=== PATIENT | female | born 1950 | race Caucasian/White ===

== ENCOUNTER → 2021-12-03 07:08 | Outpatient (CLI) | payer MEDICARE, SELFPAY ==
[2021-12-04 20:28] LABS: Fecal Immunochemical Test Negative (Negative)
== END ==
PROVIDERS: PCP Nurse Practitioner; Referring Provider Nurse Practitioner; Visit Provider Nurse Practitioner
DX: Z12.11 Encounter for screening for malignant neoplasm of colon (principal)
CPT/HCPCS: 82274

== ENCOUNTER → 2021-12-21 15:27 | Outpatient (CLI) | payer MEDICARE, SELFPAY | PROVIDERS: PCP Nurse Practitioner; Visit Provider Nurse Practitioner | DX: N89.8 Other specified noninflammatory disorders of vagina (principal) | CPT/HCPCS: 87070; 87077; 87186; 87205 ==

== ENCOUNTER → 2022-01-04 10:45 | Outpatient (CLI) | payer MEDICARE, SELFPAY ==
--- NOTE | 2022-01-04 10:47 | DI.MG.S_ITS ---
BILATERAL DIGITAL SCREENING MAMMOGRAM 3D/2D WITH CAD: 01/04/2022 CLINICAL: Routine screening. Comparison is made to exams dated: 12/06/2020 mammogram and 03/29/2019 mammogram - outside location. Both breasts are heterogeneously dense, which may obscure small masses (category c / 51-75% glandular tissue). Current study was also evaluated with a Computer Aided Detection (CAD) system. No significant masses, calcifications, or other findings are seen in either breast. There has been no significant interval change. IMPRESSION: NEGATIVE There is no mammographic evidence of malignancy. A 1 year screening mammogram is recommended. Based on the Tyrer Cuzick model (a risk assessment model) the patient's lifetime risk is 5.4% and her 10 year risk is 3.4%. According to the ACR, ACS, and NCCN guidelines, an annual breast MRI exam along with mammogram is recommended if the patient's lifetime risk is 20% or greater. This exam was interpreted at Station ID: [id number]. NOTE: For mammograms, a report in lay terms will be sent to the patient. Approximately 15% of breast malignancies will not be visualized mammographically. In the management of a palpable breast mass, a negative mammogram must not discourage biopsy of a clinically suspicious lesion. Electronically Signed By: Los smyth/hali:01/04/2022 11:46:06 letter sent: Normal Exam ACR BI-RADS Category 1: Negative 3341F
== END ==
PROVIDERS: PCP Nurse Practitioner; Referring Provider Nurse Practitioner; Visit Provider Nurse Practitioner
DX: Z13.820 Encounter for screening for osteoporosis (principal); Z12.31 Encounter for screening mammogram for malignant neoplasm of breast; M81.0 Age-related osteoporosis without current pathological fracture; Z78.0 Asymptomatic menopausal state; Z90.710 Acquired absence of both cervix and uterus
CPT/HCPCS: 77063; 77067; 77080

== ENCOUNTER → 2022-04-08 07:25 | Outpatient (CLI) | payer MEDICARE, SELFPAY ==
[2022-04-08 08:10] LABS: Influenza A - CEPHEID Flu A NEGATIVE (NEGATIVE); Influenza B - CEPHEID Flu B NEGATIVE (NEGATIVE); Respiratory Syncytial Virus Negative (Negative)
[2022-04-08 08:12] LABS: COVID-19 CEPHEID 4-PLEX PCR Negative (Negative)
== END ==
PROVIDERS: PCP Nurse Practitioner; Visit Provider Registered Nurse
DX: R05.9 Cough, unspecified (principal)
CPT/HCPCS: 0241U

== ENCOUNTER → 2022-07-28 09:36 | Outpatient (CLI) | payer MEDICARE, SELFPAY ==
--- NOTE | 2022-07-28 09:38 | DI.RAD.S_ITS ---
PROCEDURE: XR CLAVICLE RT INDICATIONS: soft tissue mass on right proximal clavicle TECHNIQUE: 2 views of the clavicle were acquired. COMPARISON: None. FINDINGS: Bones: No displaced fracture. No dislocation. Soft tissues: No suspicious calcifications IMPRESSION: No acute radiographic abnormality. If there is high concern for further derangement, consider MRI evaluation. Dictated by: Curt Hopper M.D. on 07/28/2022 at 10:14 Approved by: Curt Hopper M.D. on 07/28/2022 at 10:15
== END ==
PROVIDERS: PCP Family Medicine; Referring Provider Family Medicine; Visit Provider Family Medicine
DX: M79.89 Other specified soft tissue disorders (principal)
CPT/HCPCS: 73000

== ENCOUNTER → 2022-07-30 09:49 | Outpatient (CLI) | payer MEDICARE, SELFPAY ==
--- NOTE | 2022-07-30 09:50 | DI.US.S_ITS ---
PROCEDURE: US SOFT TISSUE HEAD AND NECK INDICATIONS: SOFT TISSUE MASS ON RIGHT PROXIMAL CLAVICLE TECHNIQUE: Real-time scanning was performed of the neck region of interest, with image documentation. COMPARISON: None. FINDINGS: Multiple grayscale and color images of the lower neck were acquired over the patient directed area of palpable concern involving the right clavicular region. No suspicious mass. No abnormal fluid collection. No adenopathy. The left lower neck at a similar region was imaged for comparison. No sonographic abnormalities are identified in this region. IMPRESSION: No sonographic abnormalities identified over the palpable area of patient concern in the region of the right clavicle. Dictated by: Dustin Thomas M.D. on 07/30/2022 at 12:08 Approved by: Dustin Thomas M.D. on 07/30/2022 at 12:09
== END ==
PROVIDERS: PCP Family Medicine; Referring Provider Family Medicine; Visit Provider Family Medicine
DX: M79.89 Other specified soft tissue disorders (principal)
CPT/HCPCS: 76536

== ENCOUNTER → 2022-08-25 07:05 | Outpatient (CLI) | payer MEDICARE, SELFPAY ==
[2022-08-25 08:07] LABS: Hematocrit 42.1 % (36-46); Hemoglobin 14.2 g/dL (12.0-16.0); Mean Corpuscular HGB Conc 33.6 % (30-36); Mean Corpuscular Volume 92.4 fL (80-100); Platelet Count 215 X10^3/uL (150-400); Red Blood Cell Count 4.56 X10^6/uL (4.0-5.2); White Blood Cell Count 4.7 X10^3/uL (4.5-11.0)
[2022-08-25 08:25] LABS: BUN Creatinine Ratio 20.3 (6-22); Blood Urea Nitrogen 12 mg/dL (7-17); Calcium 9.4 mg/dL (8.4-10.2); Carbon Dioxide 31 mmol/L (22-32); Chloride 101 mmol/L (98-107); Cholesterol 245 mg/dL (140-199); Estimated Glomerular Filt Rate > 60 mL/min (>60); Glucose 95 mg/dL (80-110); HDL Cholesterol 78 mg/dL (40-60); HEMOLYSIS < 15 (0-50); LDL Cholesterol Calculated 144 mg/dL (<100); Potassium 4.1 mmol/L (3.4-5.1); Sodium 138 mmol/L (137-145); Triglycerides 113 mg/dL (35-150)
== END ==
PROVIDERS: PCP Family Medicine; Referring Provider Family Medicine; Visit Provider Family Medicine
DX: E78.5 Hyperlipidemia, unspecified (principal); R53.83 Other fatigue; M81.0 Age-related osteoporosis without current pathological fracture; Z87.410 Personal history of cervical dysplasia; M79.89 Other specified soft tissue disorders
CPT/HCPCS: 36415; 80048; 80061; 84443; 85027

== ENCOUNTER → 2023-01-18 14:26 | Outpatient (CLI) | payer MEDICARE, SELFPAY ==
--- NOTE | 2023-01-18 | DI.MG.S_ITS ---
BILATERAL DIGITAL SCREENING MAMMOGRAM 3D/2D WITH CAD: 01/18/2023 CLINICAL: Routine screening. Comparison is made to exam dated: 01/04/2022 mammogram - [facility]. Both breasts are heterogeneously dense, which may obscure small masses (category c / 51-75% glandular tissue). Current study was also evaluated with a Computer Aided Detection (CAD) system. No significant masses, calcifications, or other findings are seen in either breast. There has been no significant interval change. IMPRESSION: NEGATIVE There is no mammographic evidence of malignancy. A 1 year screening mammogram is recommended. Based on the Tyrer Cuzick model (a risk assessment model) the patient's lifetime risk is 5.1% and her 10 year risk is 3.5%. According to the ACR, ACS, and NCCN guidelines, an annual breast MRI exam along with mammogram is recommended if the patient's lifetime risk is 20% or greater. This exam was interpreted at Station ID: [id number]. NOTE: For mammograms, a report in lay terms will be sent to the patient. Approximately 15% of breast malignancies will not be visualized mammographically. In the management of a palpable breast mass, a negative mammogram must not discourage biopsy of a clinically suspicious lesion. Electronically Signed By: Kelsie lou/hali:01/18/2023 18:06:16 letter sent: Normal Exam ACR BI-RADS Category 1: Negative 3341F
== END ==
PROVIDERS: PCP Family Medicine; Referring Provider Family Medicine; Visit Provider Family Medicine
DX: Z12.31 Encounter for screening mammogram for malignant neoplasm of breast (principal)
CPT/HCPCS: 77063; 77067

== ENCOUNTER → 2023-07-12 08:13 | Outpatient (CLI) | payer OTHER, SELFPAY ==
[2023-07-12 08:58] LABS: Influenza A - CEPHEID Flu A NEGATIVE (NEGATIVE); Influenza B - CEPHEID Flu B NEGATIVE (NEGATIVE); Respiratory Syncytial Virus Negative (Negative)
[2023-07-12 08:59] LABS: COVID-19 CEPHEID 4-PLEX PCR Negative (Negative)
== END ==
PROVIDERS: PCP Family Medicine; Visit Provider Physician Assistant Surgical
DX: J02.9 Acute pharyngitis, unspecified (principal)
CPT/HCPCS: 0241U

== ENCOUNTER → 2024-01-23 10:58 | Outpatient (CLI) | payer MEDICARE, SELFPAY ==
--- NOTE | 2024-01-23 11:00 | DI.RAD.S_ITS ---
PROCEDURE: XR DEXA AXIAL SKELETON INDICATIONS: bone density screening COMPARISON: [facility], [facility], XR DEXA AXIAL SKELETON, 01/04/2022, 11:07. FINDINGS: Lumbar Spine: Bone mineral density 0.769 g/cm2, T score -2.5, unchanged. Left Hip: Bone mineral density 0.662 g/cm2, T score -2.3, previously -2.1. Left Femoral Neck: Bone mineral density 0.529 g/cm2, T score -2.9, previously -2.7. Right Hip: Bone mineral density 0.714 g/cm2, T score -1.9, previously -1.8. Right Femoral Neck: Bone mineral density 0.554 g/cm2, T score -2.7, previously -2.7. Fracture Risk Calculation (when applicable): Not reported due to osteoporosis diagnosis. (T score greater or equal to -1.0 to: NORMAL) (T score from -1.1 to -2.4: OSTEOPENIA) (T score less than or equal to -2.5: OSTEOPOROSIS) IMPRESSION: Osteoporosis. Similar bone mineral density. Follow-up guidelines as follows: Osteoporosis: Consider a repeat DEXA and Vertebral Fracture Assessment (VFA) exam in 2 years or sooner if medically necessary, to reassess this patient's status. Osteopenia: Consider a repeat DEXA in 2-3 years to reassess this patient's status, or if there is a new clinical indication. Normal: Consider a repeat DEXA in 5 years or sooner, or if there is a new clinical indication. All treatment decisions require clinical judgment and consideration of individual patient factors, including patient preferences, comorbidities, previous drug use, risk factors not captured in the FRAX model (e.g., frailty, falls, vitamin D deficiency, increased bone turnover, interval significant decline in bone density ) and possible under- or over-estimation of fracture risk by FRAX. In addition, the NOF Guide recommends that FDA-approved medical therapies be considered in postmenopausal women and men age >= 50 years with a: * Hip or vertebral (clinical or morphometric) fracture * T-score of <=-2.5 at the spine or hip * Ten-year fracture probability by FRAX of >= 3% for hip fracture or >=20% for major osteoporotic fracture. People with diagnosed cases of osteoporosis or at high risk for fracture should have regular bone mineral density tests. For patients eligible for Medicare, routine testing is allowed once every 2 years. The testing frequency can be increased to one year for patients who have rapidly progressing disease, those who are receiving or discontinuing medical therapy to restore bone mass, or have additional risk factors. Dictated by: Harley Woodward M.D. on 01/23/2024 at 15:14 Approved by: Harley Woodward M.D. on 01/23/2024 at 15:16
--- NOTE | 2024-01-23 11:00 | DI.MG.S_ITS ---
BILATERAL DIGITAL SCREENING MAMMOGRAM 3D/2D WITH CAD: 01/23/2024 CLINICAL: Routine screening. Comparison is made to exams dated: 01/18/2023 mammogram - [facility], 12/06/2020 mammogram - outside [facility], and 01/04/2022 mammogram - [facility]. The breasts are heterogeneously dense, which may obscure small masses (category c / 51-75% glandular tissue). Current study was also evaluated with a Computer Aided Detection (CAD) system. No significant masses, calcifications, or other findings are seen in either breast. There has been no significant interval change. IMPRESSION: NEGATIVE There is no mammographic evidence of malignancy. A 1 year screening mammogram is recommended. Based on the Tyrer Cuzick model (a risk assessment model) the patient's lifetime risk is 4.8% and her 10 year risk is 3.6%. According to the ACR, ACS, and NCCN guidelines, an annual breast MRI exam along with mammogram is recommended if the patient's lifetime risk is 20% or greater. This exam was interpreted at Station ID: [id number]. NOTE: For mammograms, a report in lay terms will be sent to the patient. Approximately 15% of breast malignancies will not be visualized mammographically. In the management of a palpable breast mass, a negative mammogram must not discourage biopsy of a clinically suspicious lesion. Electronically Signed By: Jelly Ponce M.D., Ph.D. scout/hali:01/24/2024 10:39:16 letter sent: Normal Exam ACR BI-RADS Category 1: Negative [id number]
== END ==
PROVIDERS: PCP Family Medicine; Referring Provider Family Medicine; Visit Provider Family Medicine
DX: Z12.31 Encounter for screening mammogram for malignant neoplasm of breast (principal); M81.0 Age-related osteoporosis without current pathological fracture; R92.333 Mammographic heterogeneous density, bilateral breasts
CPT/HCPCS: 77063; 77067; 77080

== ENCOUNTER → 2024-07-05 13:25 | Outpatient (CLI) | payer MEDICARE, SELFPAY ==
[2024-07-05 15:30] LABS: Influenza A - CEPHEID Flu A NEGATIVE (NEGATIVE); Influenza B - CEPHEID Flu B NEGATIVE (NEGATIVE); Respiratory Syncytial Virus Negative (Negative)
[2024-07-05 15:31] LABS: COVID-19 CEPHEID 4-PLEX PCR Negative (Negative)
== END ==
PROVIDERS: PCP Family Medicine; Visit Provider Physician Assistant
DX: J06.9 Acute upper respiratory infection, unspecified (principal); R50.9 Fever, unspecified
CPT/HCPCS: 0241U

== ENCOUNTER → 2024-07-24 14:46 | Outpatient (CLI) | payer MEDICARE, SELFPAY ==
[2024-07-24 15:21] LABS: Add Manual Diff / Slide Review NO; Basophils Absolute Auto 100 /uL (0-100); Basophils Percent Auto 1.3 % (0-2); Eosinophils Absolute Auto 100 /uL (0-450); Eosinophils Percent Auto 1.9 % (2-4); Hemoglobin 13.8 g/dL (12.0-16.0); Lymphocytes Absolute Auto 1300 /uL (1100-4500); Lymphocytes Percent Auto 24.4 % (25-40); Mean Corpuscular HGB Conc 33.7 % (30-36); Mean Corpuscular Hemoglobin 31.4 PG (26-34); Mean Corpuscular Volume 93.2 fL (80-100); Monocytes Absolute Auto 400 /uL (0-900); Monocytes Percent Auto 8.5 % (3-14); Neutrophils Absolute Auto 3400 /uL (1500-7000); Neutrophils Percent Auto 63.9 % (50-75); Platelet Count 225 X10^3/uL (150-400); Red Cell Distribution Width 14.2 % (11.6-14.8); White Blood Cell Count 5.3 X10^3/uL (4.5-11.0)
[2024-07-24 15:50] LABS: Alanine Aminotransferase 14 IU/L (<35); Albumin 4.6 g/dL (3.5-5.0); Albumin Globulin Ratio 1.7 (1.0-2.8); Alkaline Phosphatase 85 U/L (38-126); Aspartate Aminotransferase 27 IU/L (14-36); BUN Creatinine Ratio 28.1 (6-22); Bilirubin Total 0.5 mg/dL (0.2-1.3); Blood Urea Nitrogen 18 mg/dL (7-17); Calcium 9.7 mg/dL (8.4-10.2); Carbon Dioxide 26 mmol/L (22-32); Chloride 103 mmol/L (98-107); Estimated Glomerular Filt Rate > 60 mL/min (>60); Globulin 2.7 g/dL (1.7-4.1); Glucose 113 mg/dL (80-110); HEMOLYSIS 39 (0-50); Potassium 4.8 mmol/L (3.4-5.1); Sodium 139 mmol/L (137-145); Total Protein 7.3 g/dL (6.3-8.2)
== END ==
PROVIDERS: PCP Family Medicine; Referring Provider Physician Assistant; Visit Provider Physician Assistant
DX: M81.0 Age-related osteoporosis without current pathological fracture (principal)
CPT/HCPCS: 36415; 80053; 85025

== ENCOUNTER 2024-09-26 12:45 | Outpatient (RCR) | payer MEDICARE, SELFPAY ==
--- NOTE | 2024-09-26 14:07 | PT.OIE ---
Current Diagnoses Pain in right knee (09/26/24) Pain in left knee (09/26/24) Pain in left ankle and joints of left foot (09/26/24) Past Medical History (Last Updated 07/29/23 @ 11:28 by Angela Stevens DO) Abnormal Pap smear of cervix (~1989) Chicken pox History of cervical dysplasia Mass of soft tissue of chest Measles Mumps Osteoporosis (~2001) Past Surgical History (Last Updated 07/29/23 @ 11:28 by Angela Stevens DO) Anesthesia History of tonsillectomy (~1966) S/P partial hysterectomy (~1989) Visit Care Team Role Provider Type Angela Stevens DO Attending Provider Physician Family Provider Primary Care Provider Referring Provider Specialty: Medical Address: [address] [place] [address], [address], [place], [address] Email: [email or web address] Physical Therapy Initial Evaluation PT-OP-A Visit Information Start: 09/26/24 09:48 Freq: Status: Active Protocol: Document 09/26/24 13:47 KW (Rec: 09/26/24 14:06 KW Laptop) Out-Patient Physical Therapy Visit Information Visit Information Visit Type Initial Evaluation Visit Start Time 13:00 Visit Stop Time 13:45 Visit Number 1 Evaluation Information Evaluation Date 09/26/24 PT-OP-B Current Condition Start: 09/26/24 09:48 Freq: Status: Active Protocol: Document 09/26/24 13:47 KW (Rec: 09/26/24 14:06 KW Laptop) Current Condition History of Current Condition Onset Date chronic Current Complaints L > R knee pain History of Current Condition 74 yo female, active with hiking local trails (no trekking poles) comes to PT with c/o medial knee pain L > R with coming down stairs, trails and some aching with sitting. Prior Treatments and Tests none Treatment Goals Patient/Caregiver Goals hike without knee pain PT-OP-C Subjective Start: 09/26/24 09:48 Freq: Status: Active Protocol: Document 09/26/24 13:47 KW (Rec: 09/26/24 14:06 KW Laptop) Patient Questionnaires Lower Extremity Functional Scale LEFS Impairment 60 to 79% Impaired (Score 17- 31) OP-PT Pain Assessment Location Right knee Intensity 3 Scale Used Numeric (0 - 10) Description Aching Frequency Intermittent Pain Aggravating Factors Activity,Exercise Pain Alleviating Factors Cold,Heat L knee Intensity 3 Scale Used Numeric (0 - 10) Description Aching Frequency Intermittent Pain Aggravating Factors Activity,Exercise Pain Alleviating Factors Cold,Heat,Inactivity PT-OP-D Balance Start: 09/26/24 09:48 Freq: Status: Active Protocol: Document 09/26/24 13:47 KW (Rec: 09/26/24 14:06 KW Laptop) OP-PT Balance Assessment Standing Balance Static Standing Balance Ability Good Dynamic Standing Balance Ability Fair Standing Balance Comments tandem with head/eye turns is a challenge Romberg is negative Christensen Fall Scale Copyright Permission PT-OP-E Functional Tests Start: 09/26/24 09:48 Freq: Status: Active Protocol: Document 09/26/24 13:47 KW (Rec: 09/26/24 14:06 KW Laptop) Functional Tests Squat Test Score 15 Single Leg Squat Test Score unable PT-OP-F Manual Assessment Start: 09/26/24 09:48 Freq: Status: Active Protocol: Document 09/26/24 13:47 KW (Rec: 09/26/24 14:06 KW Laptop) Manual Assessments Joint Mobility Assessment Joint Mobility Assessment full knee ROM PT-OP-G Mobility & Gait Start: 09/26/24 09:48 Freq: Status: Active Protocol: Document 09/26/24 13:47 KW (Rec: 09/26/24 14:06 KW Laptop) Stair Climbing Evaluation Evaluation Level of Assist On Stairs Independent Devices Stair Climbing Assistive Devices None Technique/Endurance Stair Climbing Direction Ascend and Descend Stair Climbing Technique Step Over Step Comments Stair Climbing Comments poor eccentric control thru hip/knee antwan on L side with coming up and down stairs, cues for alignment of weight transfer over knees decreased control of knee tracking both directions until cued to slow down and be mindful PT-OP-J Posture/Palpation/Skin Start: 09/26/24 09:48 Freq: Status: Active Protocol: Document 09/26/24 13:47 KW (Rec: 09/26/24 14:06 KW Laptop) Posture Evaluation Comments Posture Comments B knee hyperextension increased pronation thru L medial arch PT-OP-K Range of Motion Start: 09/26/24 09:48 Freq: Status: Active Protocol: Document 09/26/24 13:47 KW (Rec: 09/26/24 14:06 KW Laptop) Hip Goniometric Range of Motion Hip left Hip ROM WFL Yes right Hip ROM WFL Yes PT-OP-M Strength Start: 09/26/24 09:48 Freq: Status: Active Protocol: Document 09/26/24 13:47 KW (Rec: 09/26/24 14:06 KW Laptop) Hip Strength Hip Manual Muscle Testing Right Extension (S1) 4- Good- Abduction 4- Good- Left Extension (S1) 4- Good- Abduction 4- Good- Knee Strength Knee Manual Muscle Testing Left Flexion (S2) 4 Good Extension (L3) 4 Good Right Flexion (S2) 4+ Good+ Extension (L3) 4+ Good+ PT-OP-Q Treatments Start: 09/26/24 09:48 Freq: Status: Active Protocol: Document 09/26/24 13:47 KW (Rec: 09/26/24 14:06 KW Laptop) Therapeutic Exercises Sidelying Exercises clamshell with band Side bilateral Equipment Used blue Reps/Minutes 10 Comments work up to 3 x 10 Standing Exercises lateral step downs Standing Exercise Name 10 Side bilateral Equipment Used step and phone book Reps/Minutes 10 Comments cues for sitting back thru hips gastroc stretch Standing Exercise Name gastroc soleus Side bilateral Equipment Used wedge Reps/Minutes 30 sec Therapeutic Activity Therapeutic Activity sit to stand with mirror Name sit to stand Reps/Minutes 10 Comments cues for nose over toes, tracking and alignment, press thru heels Gait Training Gait Activity stairs Comments full stair case simulating hiking trail, working on eccentric control, alignment Neuro Re-Education Treatment Balance Activities tandem Details handout issued for narrow FELISHA, tandem stance Comments add in eye movements add in head turns then add in foam surface Self-Care/Home Management Treatment Education Patient Education Body Mechanics,Fall Risk,Home Exercise Program,Joint Protection,Pain Management, Posture Other Education strongly recommend use of trekking pole PT-OP-T Assessment and Plan Start: 09/26/24 09:48 Freq: Status: Active Protocol: Document 09/26/24 13:47 KW (Rec: 09/26/24 14:06 KW Laptop) Physical Therapy Assessment Rehab Potential Rehabilitation Potential Excellent Evaluation Complexity Number of Personal Factors/Comorbidities 1-2 Number of Body Systems Impaired 1-2 Clinical Presentation at Evaluation Stable Impairments Impairments Activity Tolerance,Balance, Functional Activities, Functional Mobility,Gait, Strength Goals Three Impairment lack of lateral hip strength Short Term Goal (STG) patients lateral hip strength improves to 4+/5 STG Duration 6 weeks Two Impairment pain with hiking down trails Short Term Goal (STG) patient no longer has knee pain with hiking One Impairment lack of HEP Short Term Goal (STG) patient is indep with HEP STG Duration 6 weeks Assessment Summary Assessment pleasant 74 yo female with L>R knee pain with hiking. She presents with hip weakness, impaired balance reactions and faulty body mechanics placing increased stress to knees. Pt will benefit from skilled PT to address deficits in order to meet PT and personal goals and return to pain free hiking . Physical Therapy Plan Frequency and Duration Frequency of Treatment 1x/Week Duration of treatment (weeks) 4 Plan of Care Start Date 09/26/24 Plan of Care End Date 11/26/24 Therapeutic Interventions Therapeutic Interventions Balance Training,Gait Training ,Home Exercise Program,Joint Mobilizations,Manual Therapy, Neuromuscular Re-education, Patient/Caregiver Education, Self-Care/Home Management,Soft Tissue Mobilization,Taping, Therapeutic Activities, Therapeutic Exercises Modalities Cold Pack/Ice Massage,Electric Stimulation,Ultrasound Next Visit Focus/Plan Next Note Type Treatment Note Next Visit Plan cardio warm up BOSU or shuttle balance shuttle - focus on alignment B and single leg
--- NOTE | 2024-09-26 14:07 | PT.OPPOC ---
Physical, Occupational & Speech Therapy At Current Diagnoses Pain in right knee (09/26/24) Pain in left knee (09/26/24) Pain in left ankle and joints of left foot (09/26/24) Visit Care Team Role Provider Type Angela Stevens DO Attending Provider Physician Family Provider Primary Care Provider Referring Provider Specialty: Medical Address: [address] [place] [address], [address], [place], [address] Email: [email or web address] Plan Of Care PT-OP-B Current Condition Start: 09/26/24 09:48 Freq: Status: Active Protocol: Document 09/26/24 13:47 KW (Rec: 09/26/24 14:06 KW Laptop) Current Condition History of Current Condition Onset Date chronic Current Complaints L > R knee pain History of Current Condition 74 yo female, active with hiking local trails (no trekking poles) comes to PT with c/o medial knee pain L > R with coming down stairs, trails and some aching with sitting. Prior Treatments and Tests none Treatment Goals Patient/Caregiver Goals hike without knee pain PT-OP-T Assessment and Plan Start: 09/26/24 09:48 Freq: Status: Active Protocol: Document 09/26/24 13:47 KW (Rec: 09/26/24 14:06 KW Laptop) Physical Therapy Assessment Rehab Potential Rehabilitation Potential Excellent Evaluation Complexity Number of Personal Factors/Comorbidities 1-2 Number of Body Systems Impaired 1-2 Clinical Presentation at Evaluation Stable Impairments Impairments Activity Tolerance,Balance, Functional Activities, Functional Mobility,Gait, Strength Goals Three Impairment lack of lateral hip strength Short Term Goal (STG) patients lateral hip strength improves to 4+/5 STG Duration 6 weeks Two Impairment pain with hiking down trails Short Term Goal (STG) patient no longer has knee pain with hiking One Impairment lack of HEP Short Term Goal (STG) patient is indep with HEP STG Duration 6 weeks Assessment Summary Assessment pleasant 74 yo female with L>R knee pain with hiking. She presents with hip weakness, impaired balance reactions and faulty body mechanics placing increased stress to knees. Pt will benefit from skilled PT to address deficits in order to meet PT and personal goals and return to pain free hiking . Physical Therapy Plan Frequency and Duration Frequency of Treatment 1x/Week Duration of treatment (weeks) 4 Plan of Care Start Date 09/26/24 Plan of Care End Date 11/26/24 Therapeutic Interventions Therapeutic Interventions Balance Training,Gait Training ,Home Exercise Program,Joint Mobilizations,Manual Therapy, Neuromuscular Re-education, Patient/Caregiver Education, Self-Care/Home Management,Soft Tissue Mobilization,Taping, Therapeutic Activities, Therapeutic Exercises Modalities Cold Pack/Ice Massage,Electric Stimulation,Ultrasound Next Visit Focus/Plan Next Note Type Treatment Note Next Visit Plan cardio warm up BOSU or shuttle balance shuttle - focus on alignment B and single leg Plan of Care Dates Plan of Care Start Date 09/26/24 Plan of Care End Date 11/26/24 Electronically Signed by: Jennifer Young PT 09/26/24 [id number] If you are in agreement with this Plan of Care, please return a signed and dated copy. I have reviewed this Plan of Care and certify that the skilled therapy services above are required to meet the patient?s needs. Physician Signature Date Printed Name and Credentials Clinical Instructor Signature Printed Name and Credentials
== END 2024-11-12 09:33 | disposition home or self-care (01) ==
LOC: PHYS 12:45
PROVIDERS: Family Provider Family Medicine; PCP Family Medicine; Referring Provider Family Medicine; Visit Provider Family Medicine
DX: M25.561 Pain in right knee (principal); M25.562 Pain in left knee; M25.572 Pain in left ankle and joints of left foot
CPT/HCPCS: 97110; 97116; 97161

== ENCOUNTER → 2024-10-16 10:18 | Outpatient (CLI) | payer MEDICARE, SELFPAY ==
--- NOTE | 2024-10-19 16:24 | PT.OPDS ---
Current Diagnoses Visit Care Team Role Provider Type Angela Stevens DO Attending Provider Physician Primary Care Provider Specialty: Medical Address: [address] [place] [address], [address], [place], [address] Email: [email or web address] Discharge Summary PT-OP-T Assessment and Plan Start: 10/19/24 16:23 Freq: Status: Active Protocol: Document 10/19/24 16:23 KW (Rec: 10/19/24 16:24 KW Laptop) Physical Therapy Plan Discharge Physical Therapy Discharge Reasons No Longer Attending PT
== END ==
PROVIDERS: PCP Family Medicine; Visit Provider Family Medicine
DX: N95.2 Postmenopausal atrophic vaginitis (principal)
CPT/HCPCS: 87210; 87220

== ENCOUNTER → 2024-11-29 10:43 | Outpatient (CLI) | payer MEDICARE, SELFPAY ==
[2024-11-29 11:16] LABS: Hemoglobin A1C% w Est Avg Glu 5.7 % (4.0-6.0)
== END ==
PROVIDERS: PCP Family Medicine; Referring Provider Obstetrics & Gynecology; Visit Provider Obstetrics & Gynecology
DX: R35.0 Frequency of micturition (principal)
CPT/HCPCS: 36415; 83036

== ENCOUNTER → 2024-12-17 16:02 | Outpatient (CLI) | payer MEDICARE, SELFPAY ==
--- NOTE | 2024-12-17 16:03 | DI.MRI.S_ITS ---
PROCEDURE: MR LUMBAR SPINE WO CON INDICATIONS: Sciatic nerve pain TECHNIQUE: Noncontrast sagittal T1 spin echo and T2 fast echo, sagittal STIR, and T2 fast spin echo through the lumbar spine. In cases with scoliosis, additional coronal T2 fast spin echo may be performed. COMPARISON: None. FINDINGS: Image quality: Excellent. Alignment and Curvature: There is normal bony alignment. Bone Marrow: Marrow is of normal overall signal. No acute vertebral body compression fractures. Spinal Cord: Conus medullaris terminates at the L1-L2 level. Visualized cord demonstrates normal signal and size. Paraspinous Soft Tissues: No paravertebral masses. T12-L1: No central canal or neural foraminal stenosis. L1-L2: Disc desiccation. Facet arthropathy. Mild central canal stenosis. Mild bilateral neural foraminal stenosis. L2-L3: Disc desiccation and mild disc bulge. Facet arthropathy and thickening of ligamentum flavum. Mild central canal stenosis. Mild bilateral neural foraminal stenosis. L3-L4: Disc desiccation and mild height loss. Diffuse disc bulge. Facet arthropathy. Mild central canal stenosis. Narrowing of the right greater than left lateral recess, with abutment versus impingement of the descending right L4 nerve root. Moderate bilateral neural foraminal stenosis. L4-L5: Disc desiccation and mild disc bulge. Facet arthropathy and thickening of ligamentum flavum. Mild central canal stenosis. Moderate to severe left and [id number] right neural foraminal stenosis. L5-S1: Disc desiccation. Facet arthropathy. No central canal stenosis. Mild bilateral neural foraminal stenosis. IMPRESSION: 1. Multilevel degenerative changes of the lumbar spine as described above. 2. Mild multilevel central canal stenosis. 3. Moderate to severe left neural foraminal stenosis at L4-5. Moderate bilateral neural foraminal stenosis at L3-L4. Approved by: Devin Ojeda M.D. on 12/17/2024 at 20:43
== END ==
LOC: MRI 16:02
PROVIDERS: PCP Family Medicine; Referring Provider Physician Assistant Surgical; Visit Provider Physician Assistant Surgical
DX: M51.16 Intervertebral disc disorders with radiculopathy, lumbar region (principal); M48.061 Spinal stenosis, lumbar region without neurogenic claudication; M47.26 Other spondylosis with radiculopathy, lumbar region; M47.27 Other spondylosis with radiculopathy, lumbosacral region; M48.07 Spinal stenosis, lumbosacral region
CPT/HCPCS: 72148

== ENCOUNTER → 2025-01-28 08:23 | Outpatient (CLI) | payer MEDICARE, SELFPAY ==
--- NOTE | 2025-01-28 08:24 | DI.MG.S_ITS ---
MM screening mammo BI: 01/28/2025. BI-RADS: 1 CLINICAL: 74-year old female for bilateral screening mammogram. Tyrer-Cuzick lifetime risk of 3.8%. No personal or first-degree family history of breast cancer. PRIOR EXAMS 01/23/2024, 01/18/2023, 01/04/2022. MAMMOGRAPHY TECHNIQUE: 2D and 3D (tomosynthesis) digital mammographic views obtained, with additional images as needed for full coverage. Current study was also evaluated with a Computer Aided Detection (CAD) system. DENSITY C. The breasts are heterogeneously dense, which may obscure small masses. MAMMOGRAPHY FINDINGS Bilateral: No suspicious mass, asymmetry, microcalcification, or other abnormality seen. IMPRESSION: * No evidence of malignancy. RECOMMENDATIONS Bilateral * Annual screening mammography. OVERALL ASSESSMENT CATEGORY BI-RADS-1: Negative. The [employer] recommends annual screening mammography beginning at age 40 for women with average risk of breast cancer. ELECTRONICALLY SIGNED: Zeny Le M.D. on 01/28/2025 at 05:55:20 PM PT Interpreting Station ID: [id number]
== END ==
LOC: MAMMO 08:24
PROVIDERS: PCP Family Medicine; Referring Provider Family Medicine; Visit Provider Family Medicine
DX: Z12.31 Encounter for screening mammogram for malignant neoplasm of breast (principal); R92.333 Mammographic heterogeneous density, bilateral breasts
CPT/HCPCS: 77063; 77067

== ENCOUNTER → 2025-02-27 11:44 | Outpatient (CLI) | payer MEDICARE, SELFPAY | PROVIDERS: PCP Family Medicine; Visit Provider Obstetrics & Gynecology | DX: N39.0 Urinary tract infection, site not specified (principal) | CPT/HCPCS: 87086 ==

== ENCOUNTER → 2025-04-17 11:16 | Outpatient (CLI) | payer MEDICARE, SELFPAY ==
[2025-04-18 12:09] LABS: Trichomoas vaginalis Negative (Negative)
== END ==
PROVIDERS: PCP Family Medicine; Visit Provider Obstetrics & Gynecology
DX: N89.8 Other specified noninflammatory disorders of vagina (principal)
CPT/HCPCS: 81514